=== PATIENT | male | born 1955 | race Caucasian/White ===

== ENCOUNTER 2020-06-14 02:57 | Emergency (ER) | payer MEDICARE ==
[~2020-06-14] VITALS: Ht 180.3 cm; Wt 90.4 kg
[2020-06-14] MEDS ORDERED: NITROGLYCERIN OINT 2%, 1GM TP ONE ×2 (03:18→03:30)
[2020-06-14] MEDS ORDERED: LABETALOL 5MG/ML, 20ML ONE (03:18)
[2020-06-14] MEDS ORDERED: MORPHINE SULFATE 4 MG/ML, 1ML ONE ×2 (03:18→03:52)
[2020-06-14] MEDS ORDERED: ONDANSETRON 2MG/ML, 2ML ONE (03:18)
[2020-06-14] MEDS ORDERED: SODIUM CHLORIDE FLUSH 10ML SYR IVF ONE (03:30)
[2020-06-14] MEDS ORDERED: LABETALOL 5MG/ML, 20ML IVPush ONE (03:30)
[2020-06-14] MEDS ORDERED: MORPHINE SULFATE 4 MG/ML, 1ML IVPush PRN (03:30)
[2020-06-14] MEDS ORDERED: ONDANSETRON 2MG/ML, 2ML IVPush ONE (03:30)
[2020-06-14 03:54] LABS: BASOPHILS % (AUTO) 1 % (0-1); EOSINOPHILS % (AUTO) 2 % (1-7); LYMPHOCYTES % (AUTO) 16 % (22-44); MEAN CORPUSCULAR HEMOGLOBIN 33.1 pg (27.5-34.5); MEAN CORPUSCULAR HGB CONC 35.1 g/dL (33.2-36.2); MEAN PLATELET VOLUME 7.6 fL (7.4-10.4); MONOCYTES % (AUTO) 6 % (2-9); NEUTROPHILS % (AUTO) 76 % (42-75); PLATELET COUNT 276 x10^3/uL (130-400); RED BLOOD COUNT 4.43 x10^6/uL (4.38-5.82); RED CELL DISTRIBUTION WIDTH 13.8 % (9.4-14.8)
[2020-06-14 03:55] LABS: MD NO
[2020-06-14 04:03] LABS: ALBUMIN 3.7 g/dL (3.4-5.0); ANION GAP 8 mmol/L (5-15); CALCIUM 8.3 mg/dL (8.5-10.1); CHLORIDE 110 mmol/L (98-107)
[2020-06-14 04:09] LABS: ALANINE AMINOTRANSFERASE 33 U/L (12-78); ALKALINE PHOSPHATASE 111 U/L (45-117); BILIRUBIN,TOTAL 0.6 mg/dL (0.2-1.0); CREATININE 1.06 mg/dL (0.7-1.3); TROPONIN I < 0.015 ng/mL (0.000-0.045)
--- NOTE | 2020-06-14 04:40 | NUR ---
Report received from TONJA Horn. This RN to assume care. Awaiting CTA to be complete.
--- NOTE | 2020-06-14 04:48 | NUR ---
Patient in CT.
--- NOTE | 2020-06-14 04:58 | NUR ---
Patient returned from CT. Patient states, "I'm feeling better than when I came in."
[2020-06-14] MEDS ORDERED: OMNIPAQUE 350 MG/ML, 100ML BOTTLE ONE (05:46)
--- NOTE | 2020-06-14 06:47 | NUR ---
Patient resting in ravenal. No complaints or needs at this time. Awaiting redraw of troponin at 0700. Patient aware of plan.
--- NOTE | 2020-06-14 06:56 | NUR ---
Report from Josy EVANGELISTA. Pt resting in bed, DON, denies needs. POC discussed with pt and his who is at bedside.
[2020-06-14 07:16] LABS: TROPONIN I < 0.015 ng/mL (0.000-0.045)
--- NOTE | 2020-06-14 07:30 | NUR ---
ASSUMED CARE FOR DISCHARGE ONLY Patient/Caregiver given discharge instructions and they have confirmed that they understand the instructions. Patient ambulatory with steady gait.
[2020-06-14 07:43] VITALS: BP 129/64
== END 2020-06-14 07:45 | disposition home or self-care (01) ==
LOC: ED 03:34
DX: R07.2 Precordial pain (principal); R07.89 Other chest pain; R11.2 Nausea with vomiting, unspecified; R10.9 Unspecified abdominal pain; I10 Essential (primary) hypertension; Z87.891 Personal history of nicotine dependence
CPT/HCPCS: 36415; 71045; 71275; 74175; 80053; 83690; 83880; 84484; 85025; 93005; 96374; 96375; 99285; J2270; J2405; Q9967